=== PATIENT | male | born 1955 | race Caucasian/White ===

== ENCOUNTER 2025-08-13 13:10 | Inpatient (IN) | payer MEDICARE, MEDICAID ==
[~2025-08-13] VITALS: Ht 175.3 cm; Wt 62.5 kg
[2025-08-13] MEDS ORDERED: Insulin Reg/NS 100units/100mL 100 ML IV SCH (15:45)
[2025-08-13] MEDS ORDERED: dextrose 50%-water 50ml dispensing syringe IV PRN (15:45)
[2025-08-13] MEDS ORDERED: potassium CL 10mEq/100ml bag 100 ML IV PRN (15:45)
[2025-08-13] MEDS ORDERED: insulin glargine (Lantus) pen - multi-dose SQ PRN (15:45)
[2025-08-13] MEDS ORDERED: potassium Cl 40MEQ/270ML bag 250 ML IV PRN (15:45)
[2025-08-13] MEDS ORDERED: potassium Cl 20 mEq SR tablet PO PRN (15:45)
[2025-08-13] MEDS ORDERED: potassium Cl 40MEQ/1/2NS 520ml 520 ML IV PRN (15:45)
[2025-08-13] MEDS ORDERED: magnesium sulf-water 4G/100mL 100 ML IV PRN (15:45)
[2025-08-13] MEDS ORDERED: magnesium sulf-water 2g/50mL 50 ML IV PRN (15:45)
[2025-08-13] MEDS ORDERED: ondansetron 4mg rapidly disintigrating tab PO PRN (15:45)
[2025-08-13] MEDS ORDERED: potassium Cl 20mEq/100mL bag 100 ML IV PRN (15:45)
[2025-08-13] MEDS ORDERED: vancomycin/NS 1 GM ADD-VANTAGE 250 ML IV ONE (15:45)
[2025-08-13 16:00] VITALS: BP 137/90; PULSE 75; RESP 18; TEMP 98; O2SAT 99
--- NOTE | 2025-08-13 16:26 | CONSULTATION REPORT ---
Consult Providers to CC ~ History of Present Illness Reason for Admit\Complaint: Severe three-vessel coronary disease with acute non ST elevated [place] History of Present Illness Florencio is a very nice 69-year-old gentleman who is HIV positive in his on to antiviral medications. This has been a stable problem. He presented to [facility] with a two week history of increasing heartburn. This radiated through to the back and was occasionally alleviated by change of positioned. He tells me that he has had this pain before but this was much more persistent and severe. In addition he noted increasing exertional dyspnea as well as orthopnea over the past week. This was association with a peripheral edema. In the ED he was found to have an elevated troponin at as well as EKG changes suggestive of acute anterior [place]. Echocardiography was done showing a reduced left ventricular ejection fraction of 25% with anterior apical hypo to dyskinesis. Subsequent left heart catheterization done by Dr. Varghese revealed severe three-vessel coronary artery disease. He was treated with diuretic therapy as well as beta blockade and heparin. He is being transferred here now for surgical intervention. He is now on room air and has no further exertional dyspnea. He is able to lie flat without dyspnea. Allergies: Coded Allergies: tetracycline (Verified Allergy, Severe, anaphylaxis, 04/13/13) Penicillins (Verified Allergy, Mild, ITCHING, 01/01/16) Home Medications Home Medications Active Past Medical History Past Medical History Significant for HIV positivity. He is on two antivirals. ROS ROS Generally he denies anorexia or malaise, jaundice, pruritus, fever, chills or weight loss. GI he has had no nausea or vomiting, diarrhea, constipation, melena or bright red blood per rectum. he denies dysuria, pyuria, hematuria, urgency, hesitancy or frequency. Neuromuscular denies frequent or severe headaches. He has had no change in his visual chaidez. He denies difficulty with speech, swallowing, ambulation or coordination. Cardiopulmonary is as noted in history of present illness. Exam Vitals: Vital Signs Date Time Temp Pulse Resp B/P (MAP) Pulse Ox O2 Delivery O2 Flow Rate FiO2 08/13/25 16:16 72 General: A very slender white male who is in no distress. HEENT: Normocephalic and atraumatic. Pupils round and reactive to light. No facial asymmetry. Dentition is in fair repair. Neck: Supple with midline trachea. Carotid pulses were 2+ without overlying bruits. No JVD lying at 30 Chest: Normal AP diameter. He has decreased breath sounds at the bases with some tubular breath sounds. Left greater than right. Upper lobes clear. Cardiovascular: Regular rate and rhythm with a soft systolic flow murmur at the right sternal border. Normal S1 and S2. No rubs. Abdomen: Soft and nontender normoactive bowel sounds. No masses or organomegaly noted. Extremities: 1+ bilateral ankle edema. Pulses 2+ at the radial and posterior tibials bilaterally. Additional Plan Mr. Wise is a very nice 69-year-old gentleman who unfortunately has severe three-vessel coronary disease and severe left ventricular dysfunction. Ejection fraction on echo 25% with anterior apical dyskinesis. We have recommended that he undergo coronary artery bypass grafting for revascularization. 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 The indications alternatives to surgery as well as the risks, benefits and possible complications associated with coronary artery bypass grafting in the setting have been discussed at some length with Mr. Wise. He states that he understands and accepts these and requests that we proceed. All of his questions have been answered to his stated satisfaction. Continue the heparin infusion as well as antivirals. Continue medical regimen including Lasix and Coreg. Plan for surgery LUIS PARKER III, MD Aug 13, 2025 16:26
--- NOTE | 2025-08-13 16:37 | RADIOLOGY REPORT ---
DI CHEST,TWO VIEWS INDICATION: PRE CARDIAC SURGERY TECHNIQUE: Two views of the chest COMPARISON: None FINDINGS/IMPRESSION: LUNGS: Small bilateral pleural effusions with atelectasis in bilateral lung bases. Central pulmonary vascular congestion. MEDIASTINUM: Normal cardiac size. BONES: No acute osseous abnormality. OTHER: None.
[2025-08-13 16:43] LABS: CREATININE 1.09 MG/DL (0.60-1.10); TOTAL CARBON DIOXIDE 26.9 MMOL/L (24-32); eGFR 67 ML/MIN
[2025-08-13 16:48] LABS: MEAN PLATELET VOLUME 7.1 FL (7.4-10.4); RED CELL DISTRIBUTION WIDTH 13.4 % (11.5-14.5)
[2025-08-13] MEDS: MESSAGE TO NURSING PO ONE ×4 (16:52→16:53)
[2025-08-13] MEDS: MESSAGE TO PHARMACY IJ ONE (16:52)
[2025-08-13] MEDS: heparin 25,000 UNIT/250ml bag 250 ML IV PRN (17:02)
[2025-08-13] MEDS: heparin 10,000 units/1 ML INJ IV ONE (17:05)
[2025-08-13] MEDS: MESSAGE TO NURSING IV ONE (17:09)
[2025-08-13 18:00] VITALS: BP 154/92; PULSE 86; RESP 17; TEMP 97.3; O2SAT 99
[2025-08-13] MEDS ORDERED: EMTR1TAB18 PO (18:36)
[2025-08-13] MEDS ORDERED: DOLU50TA PO (18:37)
[2025-08-13 20:00] VITALS: RESP 16; O2SAT 96
[2025-08-13] MEDS: carvedilol 6.25mg tablet PO SCH (20:04)
[2025-08-13 22:00] VITALS: BP 143/78; PULSE 71; RESP 16; TEMP 97.6; O2SAT 98
[2025-08-14] VITALS (10 sets, daily range): BP systolic 97–146; BP diastolic 58–82; PULSE 60–75; RESP 12–20; TEMP 96.4–98.4; O2SAT 94–99
[2025-08-14] MEDS: HYDROcodone/acetaminophen 5mg/325mg tablet PO PRN (00:56)
[2025-08-14] MEDS: heparin 10,000 units/1 ML INJ IV PRN (01:01)
[2025-08-14] MEDS: MESSAGE TO NURSING IV ONE ×4 (01:08→20:23)
[2025-08-14 06:14] LABS: MEAN PLATELET VOLUME 6.9 FL (7.4-10.4); RED CELL DISTRIBUTION WIDTH 13.5 % (11.5-14.5)
[2025-08-14 06:31] LABS: CREATININE 0.99 MG/DL (0.60-1.10); TOTAL CARBON DIOXIDE 27.3 MMOL/L (24-32); eCRCL 66 ML/MIN; eGFR 75 ML/MIN
--- NOTE | 2025-08-14 09:36 | ELECTROCARDIOGRAPH REPORT ---
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 Ruth Ann Del Angel Please click the below link to view image of tracing.
--- NOTE | 2025-08-14 09:39 | VASCULAR REPORT ---
[facility] Vascular Department 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 : YVES CESPEDES Preliminary Report The above named patient was referred for a NON-INVASIVE CEREBROVASCULAR EVALUATION. The evaluation includes grayscale imaging, color flow Doppler and spectral analysis of the bilateral carotid and vertebral arteries. Patient IN-PATIENT L ttihnBilateral Indications Preop CABG evaluation Risk Factors Hypertension: Medications Aspirin Doppler Spectral Velocity Analysis Right Left pCCA 85/21 cm/s pCCA 119/22 cm/s dCCA 88/13 cm/s dCCA 89/22 cm/s ECA 132/ cm/s ECA 74/ cm/s pICA 72/15 cm/s pICA 78/12 cm/s [place] 75/20 cm/s [place] 81/27 cm/s dICA 93/25 cm/s dICA 97/25 cm/s Vert. 59/14 cm/s Vert. 61/19 cm/s Subcl. 109/ cm/s Subcl. 129/ cm/s ICA/CCA 1.05 ICA/CCA 1.08 Real-Time B-Mode Imaging Area Findings Right Left CCA Plaque Composition Intimal thickening Intimal thickening BIF Plaque Composition Heterogeneous with calcification Heterogeneous with calcification Plaque Description rregular Irregular ICA Plaque Composition Heterogenous with calcification Heterogeneous with calcification Plaque Description Irregular Irregular ECA Plaque Composition Heterogenous with calcification Heterogenous with calcification Plaque Description Irregular Irregular Vertebral Antegrade Antegrade Subclavian Multiphasic Multiphasic Impression: Calcified heterogeneous irregular plaque visualized at the carotid artery bifurcation extending into the proximal internal carotid arteries bilaterally. However, no hemodynamically significant stenosis or occlusion visualized in the carotid arteries bilaterally. Less than 50% stenosis visualized in the internal carotid arteries bilaterally. Unable to rule out more significant stenosis due to calcified plaque shadowing in the internal carotid arteries bilaterally. Less than 50% stenosis visualized in the external and common carotid arteries bilaterally. Antegrade flow visualized in the vertebral arteries bilaterally. Multiphasic waveforms were noted in the subclavian arteries bilaterally.
--- NOTE | 2025-08-14 09:47 | VASCULAR REPORT ---
PROCEDURE: [facility] VENOUS Exam Date: 08/14/2025 08:27 AM History: Preop CABG, vein mapping Findings: Duplex Doppler evaluation of the superficial veins of the right and left lower extremities was performed including color Doppler and spectral/pulsed waveform analysis. Measurements of the lower extremity superficial veins in millimeters (mm) are provided below. Risk Factors Cardiac Disease Medications Aspirin Vein Measurements Great Saphenous Small Saphenous Right Lef Right Left Saph-Fem. 2.65mm 3.22mm Proximal Junction Mid Thigh 3.28mm 2.33mm Mid Distal Thigh 2.27mm 2.08mm Distal Proximal Calf 2.78mm 2.27mm Mid Calf 1.96mm 1.70mm Distal Calf 2.15mm 1.55mm CONCLUSION Imaging reveals a patent great saphenous vein bilaterally. The great saphenous vein was measured and mapped bilaterally. Of note, decreased lumen size noted in the left great saphenous vein within the calf.
[2025-08-14] MEDS: MESSAGE TO NURSING PO ONE (10:00)
[2025-08-14 10:35] LABS: ABG BASE EXCESS 0.2 mmol/L (-2.0-3.0); ABG HCO3 24.5 mmol/L (21.0-28.0); ABG OXYGEN SATURATION 93.3 % (94.0-98.0); ABG PCO2 (T) 38.5 mmHg (35.0-48.0); ABG PH (T) 7.421 (7.350-7.450); ABG PO2 (T) 68.9 mmHg (83.0-108.0); ALLEN'S TEST POSITIVE; FCOHb 1.1 % (0.5-1.5); FHHb 6.6 % (0.0-5.0); FIO2 21.0 mmHg/%; FMetHb 0.3 % (0.0-1.5); FO2Hb 92.0 % (94.0-98.0); MODE ROOM AIR; PATIENT TEMPERATURE 37.0; TOTAL HEMOGLOBIN 13.8 G/dl (13.5-17.5)
[2025-08-14] MEDS: albuterol 2.5 MG/3 ML nebule ONE (11:18)
[2025-08-14] MEDS: albuterol 2.5 MG/3 ML nebule NEB ONE (12:05)
[2025-08-14] MEDS: mupirocin 2% nasal ointment 1gm UD NS SCH (20:00)
[2025-08-14] MEDS ORDERED: FLU VACC TS2025-26(6MOS UP)/PF (FLULAVAL) 45 MCG/0.5 ML SYRINGE IMVAC ONE (21:00)
[2025-08-15] VITALS (15 sets, daily range): BP systolic 102–128; BP diastolic 52–72; PULSE 61–82; RESP 12–20; TEMP 97–98; O2SAT 96–100
[2025-08-15 03:24] LABS: MEAN PLATELET VOLUME 7.2 FL (7.4-10.4); RED CELL DISTRIBUTION WIDTH 13.2 % (11.5-14.5)
[2025-08-15 03:25] LABS: CREATININE 1.26 MG/DL (0.60-1.10); TOTAL CARBON DIOXIDE 27.3 MMOL/L (24-32); eCRCL 51 ML/MIN; eGFR 57 ML/MIN
[2025-08-15 03:30] LABS: INR 1.0 INR
[2025-08-15] MEDS: MESSAGE TO NURSING IV ONE (03:45)
--- NOTE | 2025-08-15 08:51 | PROGRESS NOTE ---
Progress Note CV Providers to CC ~ Antibiotics Ordered?: No Objective Vitals Vital Signs Date Time Temp Pulse Resp B/P (MAP) Pulse Ox O2 Delivery O2 Flow Rate FiO2 08/15/25 06:00 98.0 61 13 110/58 (75) 97 Room Air 08/14/25 11:26 0.0 21 Lab Results: 08/15/25 0300 08/15/25 0300 Coagulation Studies Laboratory Tests Test 08/15/25 03:00 Prothrombin Time 10.6 SECONDS (9.0-12.0) INR International Normalized Ratio 1.0 INR APTT (Heparin Protocol) 28 SECONDS (45-60) L Coagulation Comments Cardiac Rhythm: Sinus Rhythm Problem\Assessment\Plan Additional Plan Late entry from 08/14/25 at 0800 Pt. seen and examined yesterday AM. No new complaints. Had lots of visitors. CABG planned for Thursday. Supervising Co-signing Provider: RUBINA Juarez Aug 15, 2025 08:51
--- NOTE | 2025-08-15 09:24 | PROGRESS NOTE ---
Progress Note CV Providers to CC ~ Antibiotics Ordered?: No Subjective Subjective No overnight complaints except he is very anxious this morning. His brother is at his bedside. Preop teaching done. He does admit to problems with alcohol. He also says he lives with his sister who is partially disabled and may be interested in short term rehab postop. CABG this afternoon. Objective Vitals Vital Signs Date Time Temp Pulse Resp B/P (MAP) Pulse Ox O2 Delivery O2 Flow Rate FiO2 08/15/25 06:00 98.0 61 13 110/58 (75) 97 Room Air 08/14/25 11:26 0.0 21 Lab Results: 08/15/25 0300 08/15/25 0300 Coagulation Studies Laboratory Tests Test 08/15/25 03:00 Prothrombin Time 10.6 SECONDS (9.0-12.0) INR International Normalized Ratio 1.0 INR APTT (Heparin Protocol) 28 SECONDS (45-60) L Coagulation Comments Cardiac Rhythm: Sinus Rhythm Supervising Co-signing Provider: RUBINA Juarez Aug 15, 2025 09:24
[2025-08-15] MEDS: vancomycin/NS 1 GM ADD-VANTAGE 250 ML IV ONE (09:25)
[2025-08-15] MEDS ORDERED: BUPIVAcaine 0.5% inj/PF 30 ML ONE (10:22)
[2025-08-15] MEDS ORDERED: heparin 10,000 units/1 ML INJ ONE (10:22)
[2025-08-15] MEDS ORDERED: vancomycin 1,000mg inj ONE (10:22)
[2025-08-15] MEDS: ceFAZolin 2gm/dext,iso 50mL 50 ML IV ONE (14:17)
[2025-08-15] MEDS: midazolam 1 mg/ML 2ml injection IV ONE (14:40)
[2025-08-15] MEDS ORDERED: acetaminophen 1000 MG/100ml vial IV ONE (15:00)
[2025-08-15] MEDS ORDERED: mannitol 12.5gm/50mL VIAL IV ONE (15:00)
[2025-08-15] MEDS ORDERED: albumin (human) 25% 100 ML IV solution IV ONE (15:00)
[2025-08-15] MEDS ORDERED: methylPREDNISolone sod succ 1000mg vial ONE (15:00)
[2025-08-15] MEDS ORDERED: protamine sulf. 10mg/ml inj. IV ONE (15:00)
[2025-08-15] MEDS ORDERED: aminocaproic acid 250 MG/1 ML inj. ONE (15:00)
[2025-08-15] MEDS ORDERED: MAGNESIUM SULFATE 4 MEQ/ML (5gm/10ml) injection ONE (15:00)
[2025-08-15] MEDS ORDERED: calcium chloride 100 MG/1 ML inj IV ONE (15:00)
[2025-08-15] MEDS ORDERED: phenylephrine 10mg/ml inj. ONE (15:00)
[2025-08-15] MEDS ORDERED: sodium bicarbonate (8.4%) 1 mEq/ml syringe ONE (15:00)
[2025-08-15] MEDS ORDERED: MIDAZolam 1 MG/ML 5ML VIAL ONE (15:11)
[2025-08-15] MEDS ORDERED: SUfentanil 50mcg/ml 1ml amp IV ONE (15:12)
[2025-08-15] MEDS: BUPIVAcaine 0.5% inj/PF 30 ml vial IJ ONE (15:30)
[2025-08-15] MEDS: heparin 10,000 units/1 ML INJ IR ONE (15:30)
[2025-08-15] MEDS ORDERED: rocuronium 10mg/ml inj IV ONE ×2 (15:37)
[2025-08-15] MEDS ORDERED: propofol inj 20 ML IV ONE (15:37)
[2025-08-15 15:45] LABS: ABG BASE EXCESS -1.5 mmol/L (-2.0-3.0); ABG HCO3 20.5 mmol/L (21.0-28.0); ABG OXYGEN SATURATION 95.8 % (94.0-98.0); ABG PCO2 27.3 mmHg (35.0-48.0); ABG PH 7.494 (7.350-7.450); ABG PO2 77.9 mmHg (83.0-108.0); CL (ABG) 100 mmol/L (98-107); FCOHb 0.6 % (0.5-1.5); FHHb 4.2 % (0.0-5.0); FMetHb 0.3 % (0.0-1.5); FO2Hb 94.9 % (94.0-98.0); GLUCOSE (ABG) 89 mg/dl (65-95); IONIZED CA (ABG) 1.14 mmol/L (1.15-1.33); K (ABG) 4.4 mmol/L (3.40-4.50); TOTAL HEMOGLOBIN 12.8 G/dl (13.5-17.5)
[2025-08-15 16:27] LABS: ACTIVATED CLOTTING TIME 439.0 SEC (101-148)
[2025-08-15 16:39] LABS: ACTIVATED CLOTTING TIME 461.0 SEC (101-148)
[2025-08-15 17:02] LABS: ABG BASE EXCESS 0.7 mmol/L (-2.0-3.0); ABG HCO3 24.7 mmol/L (21.0-28.0); ABG OXYGEN SATURATION 99.5 % (94.0-98.0); ABG PCO2 36.9 mmHg (35.0-48.0); ABG PH 7.443 (7.350-7.450); CL (ABG) 98 mmol/L (98-107); FCOHb 0.3 % (0.5-1.5); FHHb 0.5 % (0.0-5.0); FMetHb 0.0 % (0.0-1.5); FO2Hb 99.2 % (94.0-98.0); GLUCOSE (ABG) 102 mg/dl (65-95); IONIZED CA (ABG) 0.99 mmol/L (1.15-1.33); K (ABG) 4.8 mmol/L (3.40-4.50); TOTAL HEMOGLOBIN 9.0 G/dl (13.5-17.5)
[2025-08-15 17:11] LABS: ACTIVATED CLOTTING TIME 509.0 SEC (101-148)
[2025-08-15 17:33] LABS: ABG BASE EXCESS 1.3 mmol/L (-2.0-3.0); ABG HCO3 25.5 mmol/L (21.0-28.0); ABG OXYGEN SATURATION 99.5 % (94.0-98.0); ABG PCO2 38.6 mmHg (35.0-48.0); ABG PH 7.438 (7.350-7.450); CL (ABG) 100 mmol/L (98-107); FCOHb 0.2 % (0.5-1.5); FHHb 0.5 % (0.0-5.0); FMetHb 0.0 % (0.0-1.5); FO2Hb 99.3 % (94.0-98.0); GLUCOSE (ABG) 111 mg/dl (65-95); IONIZED CA (ABG) 0.95 mmol/L (1.15-1.33); K (ABG) 4.6 mmol/L (3.40-4.50); TOTAL HEMOGLOBIN 8.3 G/dl (13.5-17.5)
[2025-08-15 17:42] LABS: ACTIVATED CLOTTING TIME 470.0 SEC (101-148)
[2025-08-15] MEDS: Insulin Reg/NS 100units/100mL 100 ML IV SCH ×2 (18:18→18:35)
[2025-08-15 18:22] LABS: ABG BASE EXCESS VENOUS 0.7 mmol/L (-2.0-3.0); ABG HCO3 VENOUS 25.2 mmol/L (22.0-29.0); ABG OXYGEN SATURATION VENOUS 58.0 % (60.0-85.0); ABG PCO2 VENOUS 39.5 mmHg (38.0-54.0); ABG PH (VENOUS) 7.422 (7.320-7.430); ABG PO2 VENOUS 30.7 mmHg (23.0-48.0); CL (ABG) 100 mmol/L (98-107); FCOHb VENOUS 0.3 % (0.5-1.5); FHHb VENOUS 41.8 %; FMetHb VENOUS 0.1 % (0.5-1.5); FO2Hb VENOUS 57.8 % (0-80.0); GLUCOSE (ABG) 107 mg/dl (65-95); IONIZED CA (ABG) 1.30 mmol/L (1.15-1.33); K (ABG) 3.9 mmol/L (3.40-4.50); TOTAL HEMOGLOBIN 8.3 G/dl (13.5-17.5)
[2025-08-15 18:25] LABS: ACTIVATED CLOTTING TIME 105 SEC (101-148)
[2025-08-15] MEDS ORDERED: SODIUM PHOSPHATE IN D5W 260 ML IV PRN (18:35)
[2025-08-15] MEDS ORDERED: niCARDipine-NS 40mg/200ml IVPB 200 ML IV PRN (18:35)
[2025-08-15] MEDS ORDERED: dextrose 50%-water 50ml dispensing syringe IV PRN (18:35)
[2025-08-15] MEDS ORDERED: potassium CL 10mEq/100ml bag 100 ML IV PRN (18:35)
[2025-08-15] MEDS ORDERED: potassium Cl 40MEQ/270ML bag 250 ML IV PRN (18:35)
[2025-08-15] MEDS ORDERED: potassium Cl 20 mEq SR tablet PO PRN (18:35)
[2025-08-15] MEDS ORDERED: magnesium sulf-water 4G/100mL 100 ML IV PRN (18:35)
[2025-08-15] MEDS ORDERED: nitroGLYCERIN-Tridil 50MG/D5W 250 ML IV PRN (18:35)
[2025-08-15] MEDS: nitroGLYCERIN-Tridil 50MG/D5W 250 ML IV SCH (18:35)
[2025-08-15] MEDS ORDERED: sodium phos 15mmol/D5 255mL 255 ML IV PRN (18:35)
[2025-08-15] MEDS ORDERED: metoclopramide 5 mg/ml inj IV PRN (18:35)
[2025-08-15] MEDS ORDERED: NORepinephrine 8mg/ 250ml NS 250 ML IV PRN (18:35)
[2025-08-15] MEDS ORDERED: potassium Cl 40MEQ/1/2NS 520ml 520 ML IV PRN (18:35)
[2025-08-15] MEDS ORDERED: mineral oil 133ml enema RC PRN (18:35)
[2025-08-15] MEDS ORDERED: insulin glargine (Lantus) pen - multi-dose SQ PRN (18:35)
--- NOTE | 2025-08-15 18:48 | CARDIOLOGY REPORT ---
APPROVED REPORT EXAM: Intraoperative transesophageal 2D, spectral and color flow Doppler echocardiogram. Study contains pre- and post-op images. Patient Location: CVOR Blood Pressure: 143 / 61 mmHg Heart Rate: 65 bpm Rhythm: SINUS Indications CORONARY DISEASE CABG X 4 KEMAL PROBE PASSED BY: Codie RIVAS MD Knitting Machine Operator Automatic: Joaquin Billy MD / CV surgeon: Joaquin Orellana MD Previous echo: 08/10/25 [facility] MP EF: 20-25%; sevLVF, mRV DYSFX; mLAE; modMR; mTR; lgPLEFF; PA54; apANEUR; trPE LEFT VENTRICLE PRE: Normal LV size and wall thickness. Overall systolic function is severely abnormal. Multisegmental wall motion abnormalities. Anterior septal akinesis. Multiple hypokinetic segments. ?Apical thinning without distinct aneurysm appreciated. Preop LVEF is 20-25%. POST-OP: Slight improvement to 30-35% on 3 mcg Dobutamine. RIGHT VENTRICLE PRE: RV is normal size with mildly reduced function. POST-OP: Unchanged. ATRIA PRE: Left atrium is severely dilated. Left atrial appendage is visualized in multiple planes and appears normal without debris. Left upper pulmonary vein identified and isolated by 2D and color Doppler. POST-OP: Unchanged. AORTIC VALVE PRE: Trileaflet AV appears mildly sclerotic without stenosis or insufficiency. POST-OP: Unchanged. MITRAL VALVE PRE: Mild MV annular calcification without stenosis. Mild regurgitation with BP 111/54. POST-OP: Unchanged. TRICUSPID VALVE PRE: TV appears structurally normal with trace regurgitation. POST-OP: Unchanged. PULMONIC VALVE PRE: Normal PV without stenosis, physiologic insufficiency. Royal[place]-Rose catheter in the right heart across the pulmonic valve. POST-OP: Unchanged. GREAT VESSELS PRE: Aortic root is normal in size. Ascending aorta is normal in size. POST-OP: Unchanged. PERICARDIUM PRE: Normal pericardium. No effusion. POST-OP: Unchanged. CONCLUSION PRE: Normal LV size and wall thickness. Overall systolic function is severely abnormal. Multisegmental wall motion abnormalities. Anterior septal akinesis. Multiple hypokinetic segments. ?Apical thinning without distinct aneurysm appreciated. Preop LVEF is 20-25%. POST-OP: Slight improvement to 30-35% on 3 mcg Dobutamine. PRE: RV is normal size with mildly reduced function. POST-OP: Unchanged. PRE: Left atrium is severely dilated. Left atrial appendage is visualized in multiple planes and appears normal without debris. Left upper pulmonary vein identified and isolated by 2D and color Doppler. POST-OP: Unchanged. PRE: Trileaflet AV appears mildly sclerotic without stenosis or insufficiency. POST-OP: Unchanged. PRE: Mild MV annular calcification without stenosis. Mild regurgitation with BP 111/54. POST-OP: Unchanged. PRE: TV appears structurally normal with trace regurgitation. POST-OP: Unchanged. PRE: Normal PV without stenosis, physiologic insufficiency. Royal[place]-Rose catheter in the right heart across the pulmonic valve. POST-OP: Unchanged. PRE: Normal pericardium. No effusion. POST-OP: Unchanged. Conclusion PRE: Normal LV size and wall thickness. Overall systolic function is severely abnormal. Multisegmental wall motion abnormalities. Anterior septal akinesis. Multiple hypokinetic segments. ?Apical thinning without distinct aneurysm appreciated. Preop LVEF is 20-25%. POST-OP: Slight improvement to 30-35% on 3 mcg Dobutamine. PRE: RV is normal size with mildly reduced function. POST-OP: Unchanged. PRE: Left atrium is severely dilated. Left atrial appendage is visualized in multiple planes and appears normal without debris. Left upper pulmonary vein identified and isolated by 2D and color Doppler. POST-OP: Unchanged. PRE: Trileaflet AV appears mildly sclerotic without stenosis or insufficiency. POST-OP: Unchanged. PRE: Mild MV annular calcification without stenosis. Mild regurgitation with BP 111/54. POST-OP: Unchanged. PRE: TV appears structurally normal with trace regurgitation. POST-OP: Unchanged. PRE: Normal PV without stenosis, physiologic insufficiency. Royal[place]-Rose catheter in the right heart across the pulmonic valve. POST-OP: Unchanged. PRE: Normal pericardium. No effusion. POST-OP: Unchanged.
--- NOTE | 2025-08-15 19:02 | ELECTROCARDIOGRAPH REPORT ---
[facility] Test Date: 2025-08-15 Test Time: 18:59:17 Pat Name: AKIKO MORTON Department: [facility] 2S Patient ID: [id number] Room: [facility] A Gender: M Educational Assistant: : 1955 Requested By: LUIS PARKER Order Number: [id number] Reading MD: Dr. Ruth Ann Del Angel Measurements Intervals [place] Rate: 75 P: 55 [place]: 180 QRS: 49 QRSD: 96 T: 111 QT: 446 QTc: 499 Interpretive Statements Sinus rhythm Probable anterolateral infarct, acute Abnormal T, consider ischemia, lateral leads Electronically Signed On 08-16-2025 7:01:[address] Ruth Ann Del Angel Please click the below link to view image of tracing.
[2025-08-15] MEDS: albumin (Human) 5% 250ml 250 ML IV PRN (19:13)
--- NOTE | 2025-08-15 19:20 | RADIOLOGY REPORT ---
EXAM: DI CHEST,SINGLE VIEW HISTORY: POST OP TECHNIQUE: 1 view of the chest COMPARISON: DI CHEST,TWO VIEWS on DOS: 08/13/25 FINDINGS/IMPRESSION: LUNGS: Hazy alveolar opacity in the left mid to upper lung zone and retrocardiac opacity of the left lower lobe. Small bilateral pleural effusions. MEDIASTINUM: Mild cardiomegaly. BONES: No acute osseous abnormality. OTHER: Left-sided chest tube. Endotracheal tube 4.6 cm above the scotty. Endotracheal tube 4 cm above the scotty. Sternotomy wires. Williams-Rose catheter with distal tip of the main pulmonary trunk. Right internal jugular central venous catheter of the cavoatrial junction
[2025-08-15 19:24] LABS: ABG BASE EXCESS -0.5 mmol/L (-2.0-3.0); ABG HCO3 23.1 mmol/L (21.0-28.0); ABG OXYGEN SATURATION 97.1 % (94.0-98.0); ABG PCO2 (T) 32.1 mmHg (35.0-48.0); ABG PH (T) 7.472 (7.350-7.450); ABG PO2 (T) 94.1 mmHg (83.0-108.0); FCOHb 0.8 % (0.5-1.5); FHHb 2.9 % (0.0-5.0); FIO2 80.0 mmHg/%; FMetHb 0.3 % (0.0-1.5); FO2Hb 96.0 % (94.0-98.0); MODE SIMV VC; PATIENT TEMPERATURE 36.0; PEEP 5 cm H2O; RESPIRATORY RATE 12 b/min; TIDAL VOLUME 500 mL; TOTAL HEMOGLOBIN 8.7 G/dl (13.5-17.5)
[2025-08-15 19:31] LABS: CREATININE 0.90 MG/DL (0.60-1.10); PHOSPHORUS 3.0 MG/DL (2.3-4.5); TOTAL CARBON DIOXIDE 24.7 MMOL/L (24-32); eCRCL 77 ML/MIN; eGFR 84 ML/MIN
[2025-08-15] MEDS: morphine 4 MG/ML inj SYRINge IV PRN (19:38)
[2025-08-15 19:43] LABS: MEAN PLATELET VOLUME 7.7 FL (7.4-10.4); RED CELL DISTRIBUTION WIDTH 13.0 % (11.5-14.5)
[2025-08-15] MEDS: magnesium sulf-water 2g/50mL 50 ML IV PRN (19:52)
[2025-08-15] MEDS: potassium Cl 20mEq/100mL bag 100 ML IV PRN (19:53)
[2025-08-15] MEDS: dexmedetomidin/NS 400mcg/100ml 100 ML IV PRN (19:53)
[2025-08-15 19:55] LABS: APTT 40 SECONDS (22-32); INR 1.4 INR
[2025-08-15] MEDS: vancomycin/NS 1 GM ADD-VANTAGE 250 ML IV SCH (20:15)
[2025-08-15] MEDS: mupirocin 2% nasal ointment 1gm UD NS SCH (20:15)
[2025-08-15 22:19] LABS: MEAN PLATELET VOLUME 7.0 FL (7.4-10.4); RED CELL DISTRIBUTION WIDTH 13.1 % (11.5-14.5)
[2025-08-15 22:28] LABS: CREATININE 1.16 MG/DL (0.60-1.10); PHOSPHORUS 2.9 MG/DL (2.3-4.5); TOTAL CARBON DIOXIDE 27.0 MMOL/L (24-32); eCRCL 60 ML/MIN; eGFR 62 ML/MIN
[2025-08-15 23:00] LABS: ABG BASE EXCESS -1.4 mmol/L (-2.0-3.0); ABG HCO3 22.9 mmol/L (21.0-28.0); ABG OXYGEN SATURATION 97.5 % (94.0-98.0); ABG PCO2 (T) 34.9 mmHg (35.0-48.0); ABG PH (T) 7.432 (7.350-7.450); ABG PO2 (T) 104.9 mmHg (83.0-108.0); FCOHb 1.1 % (0.5-1.5); FHHb 2.5 % (0.0-5.0); FIO2 40.0 mmHg/%; FMetHb 0.3 % (0.0-1.5); FO2Hb 96.1 % (94.0-98.0); MODE VENT - CPAP; PATIENT TEMPERATURE 36.2; PEEP 5 cm H2O; TOTAL HEMOGLOBIN 7.8 G/dl (13.5-17.5)
[2025-08-15] MEDS: ketorolac trometh 15mg/ml vial 15 MG/ML ML IV ONE (23:32)
[2025-08-15] MEDS: ceFAZolin/D5W- 1GM premix 50 ML IV SCH (23:32)
[2025-08-16] VITALS (27 sets, daily range): BP systolic 97–147; BP diastolic 49–83; PULSE 84–99; RESP 8–18; TEMP 97.5–97.9; O2SAT 90–99
[2025-08-16] MEDS: ketorolac trometh 15mg/ml vial 15 MG/ML ML IV SCH (01:41)
[2025-08-16 02:17] LABS: MEAN PLATELET VOLUME 7.3 FL (7.4-10.4); RED CELL DISTRIBUTION WIDTH 13.1 % (11.5-14.5)
[2025-08-16 02:38] LABS: CREATININE 0.94 MG/DL (0.60-1.10); PHOSPHORUS 2.6 MG/DL (2.3-4.5); TOTAL CARBON DIOXIDE 24.7 MMOL/L (24-32); eCRCL 74 ML/MIN; eGFR 80 ML/MIN
[2025-08-16] MEDS: ondansetron/PF 4mg/2ml inj IV PRN (03:11)
[2025-08-16] MEDS: HYDROcodone/acetaminophen 10/325mg tab PO PRN (03:12)
--- NOTE | 2025-08-16 05:45 | RADIOLOGY REPORT ---
CHEST RADIOGRAPH Indication: POST OP Technique: Single frontal view of the chest was obtained Comparison: DI CHEST,SINGLE VIEW on DOS: 08/15/25 FINDINGS: Lines and Tubes: There is a left apically oriented left chest tube which is unchanged in position. Right [place]-Rose catheter tip projects over the pulmonary outflow tract. Mediastinal drain is unchanged. Right central venous catheter tip terminates in the superior vena cava. Lungs: Left upper and lower lung zone opacity are unchanged. Pleura: Small bilateral pleural effusions are unchanged. No pneumothorax. Cardiomediastinal contours: Stable Cardiovascular silhouette. Bones: No acute osseous abnormality. Status post median sternotomy. IMPRESSION: No significant change in bilateral pleural effusions and left upper and lower lung zone opacities. Stable position of the support lines and tubes.
[2025-08-16 05:50] LABS: MEAN PLATELET VOLUME 7.4 FL (7.4-10.4); RED CELL DISTRIBUTION WIDTH 14.7 % (11.5-14.5)
[2025-08-16 06:19] LABS: ACT @ 1.70 U 259 SEC (193-297); ACT @ 2.84 U 343 SEC (260-420); BASELINE ACT 130 SEC (101-148)
[2025-08-16] MEDS: metoprolol tartrate 12.5mg (1/2 tablet) PO SCH (08:00)
--- NOTE | 2025-08-16 08:35 | PROGRESS NOTE ---
Progress Note CV Providers to CC ~ Antibiotics Ordered?: No Subjective Subjective S/P CABG x 4 POD # 1. Alert, up to chair. Discouraged, sore. No nausea. Objective Vitals Vital Signs Date Time Temp Pulse Resp B/P (MAP) Pulse Ox O2 Delivery O2 Flow Rate FiO2 08/16/25 06:00 97.7 90 11 98/52 (67) 97 Nasal Cannula 2.0 105/58 (69) 08/15/25 22:00 40 40 Lab Results: 08/16/25 0530 08/16/25 0156 Objective Lungs - a bit diminished at bases Heart - RRR, SR Abd/Extr - OK Incisions - CDI Coagulation Studies Laboratory Tests Test 08/15/25 12:04 08/15/25 15:52 08/15/25 18:31 08/15/25 19:00 APTT (Heparin Protocol) 28 SECONDS (45-60) L Patient Sex (Coag) M Patient Height (Coag) 175cm Patient Weight (Coag) 78.5k KG Patient Blood Volume 5737 ML Pump Volume 1500 ML Total Blood Volume 7237 ML Projected Heparin Concentration 3.0 MG/KG Heparin [place] 85 Calculated Heparin Bolus 04971 UNITS Activated Coagulation Time Baseline 130 SEC (101-148) Activated Coag Time 1.70 U/mL 259 SEC (193-297) Activated Coag Time 2.84 U/mL 343 SEC (260-420) Heparin Level (COAG) 0 MG/KG Calculated Heparin Req (Hep Assay) 61080 UNITS Calculated Protamine Req (Hep Assay 0 MG Activated Clotting Time 105 SEC (101-148) Prothrombin Time 13.9 SECONDS (9.0-12.0) H INR International Normalized Ratio 1.4 INR Activated Partial Thromboplast Time 40 SECONDS (22-32) H Coagulation Comments Cardiac Rhythm: Sinus Rhythm Problem\Assessment\Plan Additional Plan POD # 1 SR Continues on IV dobutamine CI 2.5 Given 1 unit PRBC's Supervising Co-signing Provider: RUBINA Juarez Aug 16, 2025 08:35
[2025-08-16 10:25] LABS: ABG BASE EXCESS -1.1 mmol/L (-2.0-3.0); ABG HCO3 22.9 mmol/L (21.0-28.0); ABG OXYGEN SATURATION 99.3 % (94.0-98.0); ABG PCO2 34.8 mmHg (35.0-48.0); ABG PH 7.436 (7.350-7.450); CL (ABG) 96 mmol/L (98-107); FCOHb 0.1 % (0.5-1.5); FHHb 0.7 % (0.0-5.0); FMetHb 0.0 % (0.0-1.5); FO2Hb 99.2 % (94.0-98.0); GLUCOSE (ABG) 80 mg/dl (65-95); IONIZED CA (ABG) 0.88 mmol/L (1.15-1.33); K (ABG) 4.2 mmol/L (3.40-4.50); TOTAL HEMOGLOBIN 7.7 G/dl (13.5-17.5)
[2025-08-16 10:36] LABS: ABG PO2 382.6 mmHg (83.0-108.0)
[2025-08-16 10:37] LABS: ABG PO2 364.2 mmHg (83.0-108.0)
[2025-08-16 10:37] LABS: ABG PO2 370.5 mmHg (83.0-108.0)
--- NOTE | 2025-08-16 14:18 | PROCEDURE NOTE - Respiratory ---
Procedure Note-Respiratory Providers to Copies To 1: LUIS PARKER III, MD Procedure Name: This is a spirometry study dated August 14, 2025. Spirometry measurements: There is substantial reduction in both the forced vital capacity and the FEV1 measurements. The FEV1 ratio is also significantly reduced. All of the measured flow rates are abnormally low. After inhaled bronchodilator was administered there is very slight improvement in some of the flow rate measurements. Conclusion: This study is abnormal. There is evidence for obstructive ventilatory defect. There is likely a restrictive ventilatory defect as well based on the reduction in the forced vital capacity. We have no previous studies for comparison. Close pulmonary follow-up is recommended. LUIS ANTONIO LIU MD Aug 16, 2025 14:18
[2025-08-16] MEDS: DOBUTamine-DoBUTrex 500mg/D5W 250 ML IV PRN (22:12)
[2025-08-17] VITALS (19 sets, daily range): BP systolic 106–148; BP diastolic 61–93; PULSE 69–98; RESP 11–24; TEMP 97.1–97.8; O2SAT 94–100
[2025-08-17 02:10] LABS: MEAN PLATELET VOLUME 7.7 FL (7.4-10.4); RED CELL DISTRIBUTION WIDTH 14.8 % (11.5-14.5)
[2025-08-17 02:24] LABS: CREATININE 1.57 MG/DL (0.60-1.10); TOTAL CARBON DIOXIDE 27.0 MMOL/L (24-32); eCRCL 44 ML/MIN; eGFR 44 ML/MIN
[2025-08-17 03:06] LABS: PHOSPHORUS 4.1 MG/DL (2.3-4.5)
--- NOTE | 2025-08-17 05:47 | RADIOLOGY REPORT ---
CHEST RADIOGRAPH Indication: POST OP Technique: Single frontal view of the chest was obtained Comparison: DI CHEST,SINGLE VIEW on DOS: 08/16/25 FINDINGS: Lines and Tubes: There is a right central venous catheter with tip terminating in the superior vena cava. There is a left apically oriented chest tube. The Mayer-Rose catheter has been removed. Lungs: Left upper lung zone opacities appear decreased. Bibasilar airspace disease is similar. Pleura: No effusion. No pneumothorax. Cardiomediastinal contours: Stable cardiomegaly. Bones: No acute osseous abnormality. IMPRESSION: 1. Interval removal of the Mayer-Rose catheter. 2. Decreased left upper lung zone opacities. 3. Similar bibasilar airspace disease and cardiomegaly.
[2025-08-17] MEDS: magnesium hydroxide 30ml (MOM) UD suspension PO PRN (07:25)
[2025-08-17] MEDS: pantoprazole 40mg Tablet.DR PO SCH (07:26)
--- NOTE | 2025-08-17 08:02 | PROGRESS NOTE ---
Progress Note CV Providers to CC ~ Antibiotics Ordered?: No Subjective Subjective S/P CABG x 4 POD # 2. Alert. Complains about missing a sock. Says he did not walk at all yesterday. Also states he hasn't had a BM in a week. Objective Vitals Vital Signs Date Time Temp Pulse Resp B/P (MAP) Pulse Ox O2 Delivery O2 Flow Rate FiO2 08/17/25 07:27 11 08/17/25 07:26 81 08/17/25 07:00 98.6 148/79 (102) 98 Room Air 08/16/25 12:00 1.0 08/15/25 22:00 40 40 Lab Results: 08/17/25 0200 08/17/25 0200 Objective Lungs - a bit diminished at bases Heart - RRR, SR Abd/Extr - OK Incisions - CDI Coagulation Studies Laboratory Tests Test 08/15/25 12:04 08/15/25 15:52 08/15/25 18:31 08/15/25 19:00 APTT (Heparin Protocol) 28 SECONDS (45-60) L Patient Sex (Coag) M Patient Height (Coag) 175cm Patient Weight (Coag) 78.5k KG Patient Blood Volume 5737 ML Pump Volume 1500 ML Total Blood Volume 7237 ML Projected Heparin Concentration 3.0 MG/KG Heparin [place] 85 Calculated Heparin Bolus 69977 UNITS Activated Coagulation Time Baseline 130 SEC (101-148) Activated Coag Time 1.70 U/mL 259 SEC (193-297) Activated Coag Time 2.84 U/mL 343 SEC (260-420) Heparin Level (COAG) 0 MG/KG Calculated Heparin Req (Hep Assay) 47055 UNITS Calculated Protamine Req (Hep Assay 0 MG Activated Clotting Time 105 SEC (101-148) Prothrombin Time 13.9 SECONDS (9.0-12.0) H INR International Normalized Ratio 1.4 INR Activated Partial Thromboplast Time 40 SECONDS (22-32) H Coagulation Comments Cardiac Rhythm: Sinus Rhythm Problem\Assessment\Plan Additional Plan POD # 2 Continues on 2 of Dobutamine. His creat michael to 1.57, K+ 5.5 Rx for BM Ambulate. Sepsis Screening Reassessment Date: Aug 17, 2025 Supervising Co-signing Provider: RUBINA Juarez Aug 17, 2025 08:02
[2025-08-17] MEDS ORDERED: potassium CL 10mEq/100ml bag 100 ML IV PRN (08:35)
[2025-08-17] MEDS ORDERED: potassium Cl 40MEQ/270ML bag 250 ML IV PRN (08:35)
[2025-08-17] MEDS ORDERED: potassium Cl 40MEQ/1/2NS 520ml 520 ML IV PRN (08:35)
[2025-08-17] MEDS ORDERED: potassium Cl 20 mEq SR tablet PO PRN ×2 (08:35)
[2025-08-17] MEDS ORDERED: magnesium sulf-water 4G/100mL 100 ML IV PRN (08:35)
[2025-08-17] MEDS ORDERED: potassium Cl 20mEq/100mL bag 100 ML IV PRN (08:35)
[2025-08-17] MEDS: heparin, porcine 5000 units/ml vial SQ SCH (16:36)
[2025-08-17 18:25] LABS: CREATININE 1.69 MG/DL (0.60-1.10); TOTAL CARBON DIOXIDE 27.5 MMOL/L (24-32); eCRCL 41 ML/MIN; eGFR 40 ML/MIN
[2025-08-17] MEDS: magnesium Cl slow-release 64mg tablet PO SCH (20:00)
[2025-08-17] MEDS: HYDROcodone/acetaminophen 10/325mg tab PO PRN (20:44)
[2025-08-18] VITALS (8 sets, daily range): BP systolic 95–141; BP diastolic 57–76; PULSE 66–83; RESP 11–76; TEMP 97–97.7; O2SAT 95–100
[2025-08-18] MEDS: bisacodyl 10mg suppository rectal RC PRN (04:20)
[2025-08-18 07:28] LABS: MEAN PLATELET VOLUME 8.4 FL (7.4-10.4); RED CELL DISTRIBUTION WIDTH 14.9 % (11.5-14.5)
[2025-08-18 07:55] LABS: CREATININE 1.77 MG/DL (0.60-1.10); TOTAL CARBON DIOXIDE 22.7 MMOL/L (24-32); eCRCL 39 ML/MIN; eGFR 38 ML/MIN
[2025-08-18] MEDS ORDERED: FLU VACC TS2025-26(6MOS UP)/PF (FLULAVAL) 45 MCG/0.5 ML SYRINGE IMVAC ONE (08:00)
--- NOTE | 2025-08-18 08:04 | RADIOLOGY REPORT ---
CHEST RADIOGRAPH Indication: POST OP Technique: Single frontal view of the chest was obtained Comparison: DI CHEST,SINGLE VIEW on DOS: 08/17/25, DI CHEST,SINGLE VIEW on DOS: 08/16/25, DI CHEST,SINGLE VIEW on DOS: 08/15/25, DI CHEST,TWO VIEWS on DOS: 08/13/25, XR CHEST 1 VIEW PORTABLE on DOS: 08/10/25, DI CHEST,SINGLE VIEW on DOS: 08/17/25 FINDINGS: Lines and Tubes: right central venous catheter removed There is a left apically oriented chest tube. The Byron-Rose catheter has been removed. Lungs: Left upper lung zone opacities appear decreased. Bibasilar airspace disease is similar. Pleura: No effusion. No pneumothorax. Cardiomediastinal contours: Stable cardiomegaly. Bones: No acute osseous abnormality. IMPRESSION: 1. Removal right IJ catheter. 2. Otherwise no interval change.
--- NOTE | 2025-08-18 08:14 | PROGRESS NOTE ---
Progress Note CV Providers to CC ~ Antibiotics Ordered?: No Subjective Subjective S/P CABG x 4 POD # 3. Awake. Complains that his R hand was swollen and was very concerned about it. Has resolved after a warm compress. Also complains about how light it takes for call light to be answered. Said he did not walk very far yesterday. Objective Vitals Vital Signs Date Time Temp Pulse Resp B/P (MAP) Pulse Ox O2 Delivery O2 Flow Rate FiO2 08/18/25 07:09 16 100 Nasal Cannula 1.0 08/18/25 02:00 97.0 66 95/57 (70) 08/17/25 20:00 28 Lab Results: 08/18/25 0646 08/18/25 0646 Objective Lungs - a bit diminished at bases, CT's now minimal drainage and serous. No air leak Heart - RRR, SR Abd/Extr - OK Incisions - CDI Coagulation Studies Laboratory Tests Test 08/15/25 12:04 08/15/25 15:52 08/15/25 18:31 08/15/25 19:00 APTT (Heparin Protocol) 28 SECONDS (45-60) L Patient Sex (Coag) M Patient Height (Coag) 175cm Patient Weight (Coag) 78.5k KG Patient Blood Volume 5737 ML Pump Volume 1500 ML Total Blood Volume 7237 ML Projected Heparin Concentration 3.0 MG/KG Heparin Kay 85 Calculated Heparin Bolus 26271 UNITS Activated Coagulation Time Baseline 130 SEC (101-148) Activated Coag Time 1.70 U/mL 259 SEC (193-297) Activated Coag Time 2.84 U/mL 343 SEC (260-420) Heparin Level (COAG) 0 MG/KG Calculated Heparin Req (Hep Assay) 88099 UNITS Calculated Protamine Req (Hep Assay 0 MG Activated Clotting Time 105 SEC (101-148) Prothrombin Time 13.9 SECONDS (9.0-12.0) H INR International Normalized Ratio 1.4 INR Activated Partial Thromboplast Time 40 SECONDS (22-32) H Coagulation Comments Cardiac Rhythm: Sinus Rhythm Problem\Assessment\Plan Additional Plan POD # [address], PW's Creat continues to uptrend. K+ 6.0 No BM yet. Kayexalate. Strict I/O Ambulate. Sepsis Screening Reassessment Date: Aug 18, 2025 Supervising Co-signing Provider: RUBINA Juarez Aug 18, 2025 08:14
[2025-08-18] MEDS: albumin (human) 25% 100 ML IV solution IV ONE (09:04)
[2025-08-18] MEDS: sodium polystyrene sulfonate 15gm/60ml oral suspension PO ONE (09:44)
[2025-08-18 12:55] LABS: CREATININE 1.60 MG/DL (0.60-1.10); TOTAL CARBON DIOXIDE 26.2 MMOL/L (24-32); eCRCL 44 ML/MIN; eGFR 43 ML/MIN
[2025-08-18] MEDS: JUVEN Smoothie Arginine/Glut./Ca2+Bmb (Juven 19.3pkt) 240ml cup PO SCH (18:09)
[2025-08-19] VITALS (8 sets, daily range): BP systolic 112–144; BP diastolic 61–79; PULSE 74–88; RESP 11–22; TEMP 96.9–98; O2SAT 93–100
[2025-08-19 06:45] LABS: MEAN PLATELET VOLUME 7.8 FL (7.4-10.4); RED CELL DISTRIBUTION WIDTH 14.9 % (11.5-14.5)
[2025-08-19 07:02] LABS: CREATININE 1.12 MG/DL (0.60-1.10); TOTAL CARBON DIOXIDE 25.1 MMOL/L (24-32); eCRCL 62 ML/MIN; eGFR 65 ML/MIN
--- NOTE | 2025-08-19 12:00 | PROGRESS NOTE ---
Progress Note CV Providers to CC ~ Progress Note: POD#4 CABG Central Line/PICC still needed: N\A Lane Indications Met/Not Met: F/C Indications Not Met Antibiotics Ordered?: No Subjective Subjective Patient feeling reasonably well. Still little bit short of breath with exertion. Objective Vitals Vital Signs Date Time Temp Pulse Resp B/P (MAP) Pulse Ox O2 Delivery O2 Flow Rate FiO2 08/19/25 08:00 74 08/19/25 08:00 96 Room Air* 0 21 08/19/25 08:00 16 08/19/25 06:00 97.7 115/65 (82) Lab Results: 08/19/25 0629 08/19/25 0629 Objective Lungs are diminished at the left base. Otherwise fairly clear. Reasonable air movement. Cardiac exam regular rate and rhythm. No rubs present. Soft S4. sternal incision clean and dry. Extremities without edema. Coagulation Studies Laboratory Tests Test 08/15/25 12:04 08/15/25 15:52 08/15/25 18:31 08/15/25 19:00 APTT (Heparin Protocol) 28 SECONDS (45-60) L Patient Sex (Coag) M Patient Height (Coag) 175cm Patient Weight (Coag) 78.5k KG Patient Blood Volume 5737 ML Pump Volume 1500 ML Total Blood Volume 7237 ML Projected Heparin Concentration 3.0 MG/KG Heparin [place] 85 Calculated Heparin Bolus 39371 UNITS Activated Coagulation Time Baseline 130 SEC (101-148) Activated Coag Time 1.70 U/mL 259 SEC (193-297) Activated Coag Time 2.84 U/mL 343 SEC (260-420) Heparin Level (COAG) 0 MG/KG Calculated Heparin Req (Hep Assay) 35784 UNITS Calculated Protamine Req (Hep Assay 0 MG Activated Clotting Time 105 SEC (101-148) Prothrombin Time 13.9 SECONDS (9.0-12.0) H INR International Normalized Ratio 1.4 INR Activated Partial Thromboplast Time 40 SECONDS (22-32) H Coagulation Comments Cardiac Rhythm: Sinus Rhythm Problem\Assessment\Plan Additional Plan Doing well after relatively high-risk CABG. Hemodynamics remained good. Creatinine now diminishing to below preoperative with normalization of potassium. Continue to mobilize and push incentive spirometry. Should be ready for discharge in 1-2 days. LUIS PARKER III, MD Aug 19, 2025 12:00
[2025-08-20 02:18] VITALS: BP 132/67; PULSE 78; RESP 13; TEMP 97.5; O2SAT 98
[2025-08-20 06:00] VITALS: BP 130/60; PULSE 101; RESP 16; TEMP 97.6; O2SAT 97
[2025-08-20 07:05] LABS: MEAN PLATELET VOLUME 8.3 FL (7.4-10.4); RED CELL DISTRIBUTION WIDTH 14.3 % (11.5-14.5)
[2025-08-20 07:19] LABS: CREATININE 1.01 MG/DL (0.60-1.10); TOTAL CARBON DIOXIDE 24.9 MMOL/L (24-32); eCRCL 69 ML/MIN; eGFR 73 ML/MIN
[2025-08-20 08:00] VITALS: RESP 16; O2SAT 97
--- NOTE | 2025-08-20 08:15 | PROGRESS NOTE ---
Progress Note CV Providers to CC ~ Antibiotics Ordered?: No Subjective Subjective S/P CABG x 4 POD # 5. Alert, up to chair. No complaints today. He is wanting to go to rehab rather than home. Objective Vitals Vital Signs Date Time Temp Pulse Resp B/P (MAP) Pulse Ox O2 Delivery O2 Flow Rate FiO2 08/20/25 02:18 97.5 78 13 132/67 (88) 98 Room Air 08/19/25 20:00 0.0 21 Lab Results: 08/20/25 0615 08/20/25 0615 Objective Lungs - fairly clear Heart - RRR, SR Abd/Extr - OK Incisions - CDI Coagulation Studies Laboratory Tests Test 08/15/25 12:04 08/15/25 15:52 08/15/25 18:31 08/15/25 19:00 APTT (Heparin Protocol) 28 SECONDS (45-60) L Patient Sex (Coag) M Patient Height (Coag) 175cm Patient Weight (Coag) 78.5k KG Patient Blood Volume 5737 ML Pump Volume 1500 ML Total Blood Volume 7237 ML Projected Heparin Concentration 3.0 MG/KG Heparin [place] 85 Calculated Heparin Bolus 08237 UNITS Activated Coagulation Time Baseline 130 SEC (101-148) Activated Coag Time 1.70 U/mL 259 SEC (193-297) Activated Coag Time 2.84 U/mL 343 SEC (260-420) Heparin Level (COAG) 0 MG/KG Calculated Heparin Req (Hep Assay) 50513 UNITS Calculated Protamine Req (Hep Assay 0 MG Activated Clotting Time 105 SEC (101-148) Prothrombin Time 13.9 SECONDS (9.0-12.0) H INR International Normalized Ratio 1.4 INR Activated Partial Thromboplast Time 40 SECONDS (22-32) H Coagulation Comments Cardiac Rhythm: Sinus Rhythm Problem\Assessment\Plan Additional Plan POD # 5 SR Creat continues to downtrend. To rehab when facility can take him. Sepsis Screening Reassessment Date: Aug 20, 2025 Supervising Co-signing Provider: RUBINA Juarez Aug 20, 2025 08:15
[2025-08-20 10:09] VITALS: RESP 16; O2SAT 97
[2025-08-20 11:00] VITALS: BP 112/63; PULSE 73; RESP 12; TEMP 97.7; O2SAT 92
[2025-08-20] MEDS: magnesium sulf-water 2g/50mL 50 ML IV PRN (11:13)
[2025-08-20] MEDS: JUVEN Shake w/Arg/Glut/Ca2+Bmb (Juven 19.3gm) pkt 240ml PO SCH (12:30)
--- NOTE | 2025-08-21 14:50 | DISCHARGE SUMMARY ---
DATE OF DISCHARGE: 08/20/2025 DICTATING PHYSICIAN: Tiburcio Lewis ADMITTING PHYSICIAN: Silvestre Orellana MD DRAFTING TECHNICIAN: Dr. Varghese. PREOPERATIVE DIAGNOSES: Severe triple-vessel coronary artery disease with acute jqf-CK-gqiemln elevation myocardial infarction, history of human immunodeficiency virus positivity on antivirals, also markedly reduced left ventricular ejection fraction of 25% with anterior apical hypo-dyskinesis. DISCHARGE DIAGNOSES: Severe triple-vessel coronary artery disease with acute gxn-ZW-pyywzgn elevation myocardial infarction, history of human immunodeficiency virus positivity on antivirals, also markedly reduced left ventricular ejection fraction of 25% with anterior apical hypo-dyskinesis, status post coronary artery bypass grafting x4. COMPLICATIONS POSTOPERATIVELY: None. CONDITION ON DISCHARGE: Stable. PROGNOSIS: Good. SUMMARY: This is a very pleasant 69-year-old gentleman, who is HIV positive and is on antiviral medications. This has been a stable problem. He presented to [facility] with a 2-week history of increasing heartburn radiating to the back and was occasionally relieved by a change of position. He has had previous episodes like this in the past, but this episode was more persistent and severe. He was found to have elevated troponin as well as EKG changes suggestive of acute anterior RI. Echocardiography demonstrated reduced left ejection fraction of 25% with anterior apical hypo-dyskinesia noted. Cardiac catheterization by Dr. Varghese revealed severe triple-vessel disease. The patient was treated with diuretics as well as beta-blockade, aspirin, and heparin drip. He was transferred to [facility] for surgical intervention after being deemed too high risk at [facility]. The patient was taken to the operating room on 08/15/2025. Name of the operation is coronary artery bypass grafting x4 along with endoscopic vein harvesting and transesophageal echocardiography. Following the operation, the patient was transferred to the CICU in stable condition. The following morning, he was awake, alert, quite sore, up to the chair. He had no nausea. He continued on IV dobutamine. He had a good cardiac index of 2.5. The patient was transfused the following day. He continued on dobutamine. His creatinine michael to 1.57 with a potassium of 5.5. He was given Lasix. The following day, his urine output continued somewhat minimal with a creatinine of 1.77 and a potassium of 6. He was given Kayexalate as well as Lasix and over the next couple of days his potassium as well as his creatinine downtrended. By postoperative day 5, his creatinine had downtrended to 1.08 with a potassium of 4.6. The patient preferred going to rehab rather than to home. Arrangements were made and he was transferred to the rehab facility yesterday. DISCHARGE PROGRAM: Followup appointment with our office in 2 weeks. Follow up with cardiology in 4 weeks and with his primary physician in 6 weeks. ACTIVITY: Physical therapy and occupational therapy. He is to observe sternal precautions. He is okay to shower daily. DIET: He will begin on a regular diet, transitioning to a heart healthy diet as tolerated. MEDICATIONS ON DISCHARGE: Will include Dimitry smoothies b.i.d., Protonix 40 mg p.o. daily, aspirin 81 mg p.o. daily, Lopressor 12.5 mg p.o. b.i.d., Lipitor 10 mg p.o. daily, Senna-S 1 tablet p.o. b.i.d., milk of magnesia 30 mL p.o. b.i.d. p.r.n. constipation, [place] 10/325 1 p.o. q. 4 hours p.r.n. pain. He will continue on his 2 antivirals as at home. Tiburcio Orellana MD TID: [id number] RECEIPT: [id number] [facility] [place] cc: Silvestre Orellana MD, Dr. Varghese
--- NOTE | 2025-09-05 10:15 | OPERATIVE REPORT ---
Operative Report Operative Report Cardiovascular surgery operative report 15 August 2025 Preoperative diagnosis: Severe three-vessel coronary disease, severe left ventricular dysfunction, HIV positive Postop diagnosis: Same Procedure: Coronary artery bypass grafting x4 placing the left internal mammary artery to the LAD, a sequential reverse saphenous vein graft to the ramus and 1st diagonal and a reverse saphenous vein graft to the right posterior descending coronary artery Surgeon: Dr. Silvestre Orellana assistant research scientist: Dr. Castillo Kellogg and Tiburcio Lewis PA-C Anesthesia: General via endotracheal tube Dr. Tello Complications : None EBL: 200 mL Procedure: The patient is taken to the operating room placed in supine position. Induction of general oral endotracheal anesthesia and the placement of appropriate lines as well as a femoral arterial line for possible balloon pump as well as monitoring the anterior chest, abdomen and bilateral lower extremities were prepped and draped sterilely. A portion of greater saphenous vein was removed endoscopically from the right leg. Side branches were controlled with the electrocautery. It was ligated proximally and distally and then excised. It was flushed with heparinized blood and side branches ligated 4-0 silk. It was then set aside. Careful hemostasis was achieved throughout the tunnel which was irrigated with antibiotic solution. It was closed in two layers absorbable suture. At the same time a median sternotomy was performed and the left pleural space was widely opened. This allowed the left internal mammary artery to be dissected free from the anterior chest wall. The patient was systemically heparinized and after 3 minutes the EVELYNE was divided at the diaphragm, ligating it distally with 0 silk. Pericardium was then opened in midline and suspended. Single aortic and dual stage right atrial cannula placed for cardiopulmonary bypass. The distal anastomosis were accomplished with a running seven 0 Prolene on a beating heart using an epicardial stabilizer to facilitate the distal anastomosis. The bypasses were done on pump for hemodynamic support. The 1st bypass performed was the left internal mammary artery to the LAD. A slit was cut in the left superior pericardium to allow the EVELYNE tied medial to lung without tension. It was cut to length and distal end was spatulated. It was then anastomosed in end-to-side fashion to the mid LAD. The bulldog clamp was removed from the EVELYNE pedicle to restore flow. The pedicle was tacked to the epicardium with interrupted five 0 Prolene sutures. A sequential graft was then fashioned to the lateral wall placing an end-to-side anastomosis to the ramus with a dzai-az-usic anastomosis to the 1st diagonal. Finally a portion of reverse saphenous vein was anastomosed in end-to-side f ashion to the right posterior descending coronary artery. Partial occluding clamp was then placed in the ascending aorta and two aortotomies were created with a 4 mm punch. This allowed the proximal anastomosis with the vein grafts to be performed. Each was done in end-to-side fashion with running six 0 Prolene. Proximal markers were placed. The clamp was removed with the vein grafts were de-aired. Flow was restored to the entire coronary circulation. Temporary pacing wires were then placed on the anterior surface of the right ventricle and right atrium. The patient was placed on a dobutamine infusion at 5 mg/kilo/min. Ventilation was resumed resumed. The patient was then weaned from cardiopulmonary bypass and decannulated in standard fashion. Protamine solution was administered to reverse heparinization and careful hemostasis was achieved throughout the mediastinum. A 28 Kinyarwanda Rajendra drain was placed in the left pleural space with a 32 Kinyarwanda straight chest tube was placed anterior to the mediastinum. These were both secured to skin with 1. Silk. The sternal edges were then treated with vancomycin paste. It was reapproximated in the midline with interrupted [id number] of 7. Stainless steel wire in concert with zip fix sternal bands. The midline fascia, subcutaneous tissue and skin were closed in layers. Sterile dressings were applied and the chest tube was attached to water-seal. The patient is then returned to the ICU in critical but stable condition, having tolerated the procedure satisfactorily. There were no complications. Sponge, needle and instrument counts were correct x2 at the end of the case. Tiburcio Lewis PA-C was present for and assisted throughout the entire procedure SILVESTRE ORELLANA III, MD Sep 05, 2025 10:15
== END 2025-08-20 14:45 | DRG 235 ==
LOC: PCU 3S 15:49 → UNDOADMIN 15:53 → PCU 3S 15:53 → CICU 2S 08-15 15:40 → PCU 3S 08-17 14:24
PROVIDERS: ADMIT Thoracic Surgery (Cardiothoracic Vascular Surgery); ATTEND Thoracic Surgery (Cardiothoracic Vascular Surgery)
PROC: 021209W Bypass Coronary Artery, Three Arteries from Aorta with Autologous Venous Tissue, Open Approach (ICD-10-PCS; 2025-08-15)
PROC: 06BP4ZZ Excision of Right Saphenous Vein, Percutaneous Endoscopic Approach (ICD-10-PCS; 2025-08-15)
PROC: 5A1221Z Performance of Cardiac Output, Continuous (ICD-10-PCS; 2025-08-15)
PROC: 02100Z9 Bypass Coronary Artery, One Artery from Left Internal Mammary, Open Approach (ICD-10-PCS; principal; 2025-08-15 15:12)
PROC: 30233N1 Transfusion of Nonautologous Red Blood Cells into Peripheral Vein, Percutaneous Approach (ICD-10-PCS; 2025-08-16)
DX: I21.4 Non-ST elevation (NSTEMI) myocardial infarction (principal); N17.0 Acute kidney failure with tubular necrosis; B20 Human immunodeficiency virus [HIV] disease; I10 Essential (primary) hypertension; I25.10 Atherosclerotic heart disease of native coronary artery without angina pectoris; Z79.899 Other long term (current) drug therapy; Z88.0 Allergy status to penicillin
CPT/HCPCS: 36415; 36600; 71045; 71046; 80048; 80053; 82330; 82435; 82803; 82947; 82948; 83036; 83735; 84100; 84132; 84295; 85018; 85025; 85027; 85347; 85610; 85730; 86885; 86900; 86901; 86920; 87081; 93005; 93312; 93325; 93880; 93970; 94002; 94060; 94640; 94760; 97116; 97161; 97530; A4615; A4618; A4628; A6258; A6449; A7000; A7048; C1751; G0378; J0131; J0169; J0665; J0690; J1250; J1265; J1644; J1815; J1885; J1938; J2151; J2250; J2270; J2371; J2405; J2704; J2720; J2919; J3373; J3480; J3490; J7030; J7040; J7050; J7120; P9016; P9045; P9047